=== PATIENT | female | born 1995 | race African-American/Black ===

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

== ENCOUNTER 2017-02-06 20:25 | Emergency (ER) | payer MEDICAID, OTHER ==
[~2017-02-06] VITALS: Ht 167.6 cm; Wt 99.0 kg
[~2017-02-06 20:25] MED LIST changes: +PENI500T PO
[2017-02-06 20:27] VITALS: BP 146/77; PULSE 120; RESP 16; TEMP 98.5; O2SAT 96
--- NOTE | 2017-02-06 21:11 | PD ---
HPI Chief Complaint: Injury Time Seen by Provider: 21:04 Travel History International Travel<30 days: No Contact w/Intl Traveler<30days: No Traveled to known affect area: No History of Present Illness HPI Patient is a 21-year-old female presenting to emergency Department for evaluation of right foot and right thumb pain. Patient states she was moving a bench at work when the bench slipped, breaking off her acrylic nail on her thumb and landing on her right third through fifth toes. The accident occurred at approximately 5 PM this evening. She reports pain is a 5 out of 10 and states it's painful to walk. Patient describes her pain as throbbing. She has not taken anything to alleviate the pain thus far. PFSH Past Medical History Cardiovascular Problems: Yes (NEUROCARDIOGENIC SYCOPE) Diminished Hearing: No Immunizations Current: Yes Tetanus Vaccination: Unknown Influenza Vaccination: No ?: Not Past Surgical History Surgical History: No Previous Surgery Social History Alcohol Use: Yes (socially) Tobacco Use: No Substance Use: No Allergies-Medications (Allergen,Severity, Reaction): Coded Allergies: No Known Allergies (Unverified , 02/06/17) Reported Meds & Prescriptions Reported Meds & Active Scripts Active Ibuprofen 800 Mg Tab 800 Mg PO Q6HR PRN Review of Systems Except as stated in HPI: all other systems reviewed are Neg Musculoskeletal: Positive: Myalgias, Pain Skin: Positive Change in Pigmentation, Positive Change in nails Physical Exam Narrative GENERAL: Well-nourished, well-developed patient. SKIN: Focused skin assessment warm/dry. HEAD: Normocephalic. EYES: No scleral icterus. No injection or drainage. NECK: Supple, trachea midline. No JVD or lymphadenopathy. CARDIOVASCULAR: Regular rate and rhythm without murmurs, gallops, or rubs. RESPIRATORY: Breath sounds equal bilaterally. No accessory muscle use. GASTROINTESTINAL: Abdomen soft, non-tender, nondistended. MUSCULOSKELETAL: No cyanosis, mild edema to the right third through fifth toes. Positive pedal pulses, brisk less than 3 second capillary refill. No obvious deformities noted. Right thumb with a small abrasion to the distal aspect of the nailbed where the acrylic nail broke off. The nail is not avulsed. BACK: Nontender without obvious deformity. No CVA tenderness. Data Data Last Documented VS Vital Signs Date Time Temp Pulse Resp B/P Pulse Ox O2 Delivery O2 Flow Rate FiO2 02/06/17 20:27 98.5 120 16 146/77 96 Room Air Orders Foot, Limited (2vws) (02/06/17 ) Ice/Cold Pack (02/06/17 21:05) Wound Care (02/06/17 21:05) Ibuprofen (Motrin) (02/06/17 21:15) Shoe Post Op (02/06/17 ) MDM Medical Decision Making Medical Screen Exam Complete: Yes Emergency Medical Condition: Yes Interpretation(s) Vital Signs Date Time Temp Pulse Resp B/P Pulse Ox O2 Delivery O2 Flow Rate FiO2 02/06/17 20:27 98.5 120 16 146/77 96 Room Air Differential Diagnosis Fracture versus contusion versus avulsion versus other Narrative Course Patient is a 21-year-old female presenting after sustaining an injury to her right foot and right first finger at work at 5 PM this evening. Imaging ordered and pending. Ice, ibuprofen, wound care ordered. Patient reports a history of neurocardiogenic syncope. Her heart rate is elevated at 120 on arrival. Patient is denying any pain in her chest or shortness of breath. Will reassess vital signs prior to discharge. Wound care was performed Imaging shows no acute fracture, only soft tissue swelling. Patient will be given a postop shoe for comfort. She is encouraged to rest, ice, elevate extremity. She will be given a note for work. She is encouraged to follow-up with her primary doctor. She was advised strongly to avoid having her acrylic nails manicured until the wound on her thumb is completely healed to avoid a secondary infection. Encouraged to keep a Band-Aid and topical antibiotic ointment on her finger. She is advised to return to emergency department for any new or worsening symptoms. Patient verbalized understanding of instructions. Patient is stable for discharge. HR reassessed at 97 prior to discharge Diagnosis Primary Impression: Contusion, toes Qualified Code: S90.121A - Contusion of lesser toe of right foot without damage to nail, initial encounter Additional Impression: Injury of nail bed of finger Qualified Code: S69.91XA - Injury of nail bed of finger, right, initial encounter Referrals: Primary Care Physician Patient Instructions: Acute Wound Care (ED), Foot Contusion (ED), General Instructions Departure Forms: Tests/Procedures, Work Release Enter return to work date: Feb 07, 2017 Special Instructions: Postop shoe for comfort, allow periods of elevation throughout the day. Additional Instructions: Rest, ice, elevate extremity Keep nail bed clean and dry, apply topical antibiotic ointment and Band-Aid. Strongly advise against having nails manicured, specifically to the injured nail bed until the wound is completely healed to avoid a secondary infection Postop shoe for comfort Follow-up with your primary Return to emergency department for any new or worsening symptoms Med/Other Pt SpecificInfo: Prescription(s) given Scripts Ibuprofen 800 Mg Sbo561 Mg PO Q6HR PRN (PAIN) #40 TAB Ref 0 Prov:Lolita Mcclellan 02/06/17 Disposition: 01 DISCHARGE HOME Condition: Stable Lolita Mcclellan Feb 06, 2017 21:11
[2017-02-06] MEDS ORDERED: IBUPROFEN 800 MG TAB PO ONE (21:15)
--- NOTE | 2017-02-06 21:28 | RADRPT ---
EXAM DATE/TIME: 02/06/2017 21:25 [facility] COMPARISON: No previous studies available for comparison. INDICATIONS : Kids table landed on toes at work. MEDICAL HISTORY : None. SURGICAL HISTORY : None. ENCOUNTER: Initial ACUITY: 1 day PAIN SCORE: 0/10 LOCATION: Right 3rd-5th toes FINDINGS: There is distal soft tissue swelling. Bones of the right foot are intact and normally aligned. CONCLUSION: Soft tissue swelling without fracture. Bernardo Gomez MD on February 06, 2017 at 21:25 Board Certified Radiologist. This report was verified electronically.
[2017-02-06] MEDS ORDERED: IBUP800T23 PO (21:41)
== END 2017-02-06 22:51 | disposition home or self-care (01) ==
LOC: NEPK 20:25
DX: S90.121A Contusion of right lesser toe(s) without damage to nail, initial encounter (principal); S69.91XA Unspecified injury of right wrist, hand and finger(s), initial encounter; R00.0 Tachycardia, unspecified; Z86.69 Personal history of other diseases of the nervous system and sense organs; Z86.79 Personal history of other diseases of the circulatory system; X58.XXXA Exposure to other specified factors, initial encounter; Y99.0 Civilian activity done for income or pay
CPT/HCPCS: 73620; 99283; L3260

== ENCOUNTER 2017-03-18 12:22 | Emergency (ER) | payer MEDICAID ==
[~2017-03-18] VITALS: Ht 160 cm; Wt 167.0 kg
[~2017-03-18 12:22] MED LIST changes: +IBUP800T23 PO; -PENI500T PO; -PROV10TA PO
[2017-03-18 12:24] VITALS: BP 163/78; PULSE 103; RESP 18; TEMP 98.2; O2SAT 99
--- NOTE | 2017-03-18 12:43 | PD ---
HPI Chief Complaint: Back/ Neck Pain or Injury Time Seen by Provider: 12:43 Travel History International Travel<30 days: No Contact w/Intl Traveler<30days: No Traveled to known affect area: No History of Present Illness HPI 22-year-old female presents to the emergency department for evaluation of left upper back pain that started 2 days ago without injury. Patient has not taken anything [id number] for her pain. She states the pain is exacerbated by movement. She has had no fevers or chills. No cough or congestion. No chest pain. Patient denies any abdominal pain. No nausea, vomiting, diarrhea. Patient has had no recent surgeries or travel. No hemoptysis. No leg edema. She is not on control pills. She does report history of syncope. She denies any recent syncope. Patient denies any chance of . No loss of bowel or bladder control. No loss of sensation. No history of IV drug use. PFSH Past Medical History Cardiovascular Problems: Yes (NEUROCARDIOGENIC SYNCOPE) Diminished Hearing: No Immunizations Current: No Tetanus Vaccination: Unknown Influenza Vaccination: No ?: Not LMP: 03/18/17 Past Surgical History Surgical History: No Previous Surgery Social History Alcohol Use: Yes (socially) Tobacco Use: No Substance Use: No Allergies-Medications (Allergen,Severity, Reaction): Coded Allergies: No Known Allergies (Unverified , 03/18/17) Reported Meds & Prescriptions Reported Meds & Active Scripts Active Review of Systems Except as stated in HPI: all other systems reviewed are Neg Physical Exam Narrative GENERAL: Well-nourished, well-developed obese female patient, afebrile. SKIN: Focused skin assessment warm/dry. HEAD: Normocephalic. Atraumatic. EYES: No scleral icterus. No injection or drainage. NECK: Supple, trachea midline. No JVD or lymphadenopathy. CARDIOVASCULAR: Regular rate and rhythm without murmurs, gallops, or rubs. Bilateral radial and pedal pulses are 2+. RESPIRATORY: Breath sounds equal bilaterally. No accessory muscle use. Lungs sounds are clear to auscultation. GASTROINTESTINAL: Abdomen soft, non-tender, nondistended. MUSCULOSKELETAL: No cyanosis, or edema. BACK: No obvious deformity. No CVA tenderness. Patient has left thoracic paraspinal musculature tenderness to palpation. When patient rotates from side- to-side, this pain is exacerbated. No midline spinal tenderness to palpation. Data Data Last Documented VS Vital Signs Date Time Temp Pulse Resp B/P Pulse Ox O2 Delivery O2 Flow Rate FiO2 03/18/17 12:24 98.2 103 18 163/78 99 MDM Medical Decision Making Medical Screen Exam Complete: Yes Emergency Medical Condition: Yes Medical Record Reviewed: Yes Differential Diagnosis Muscle strain versus spasm versus rib contusion Narrative Course 22-year-old female presents to the emergency department for evaluation of left upper back pain that started 2 days Without injury. This pain is exacerbated by movement. Heart rate is 93 on my physical exam. Patient is PERC negative. No evidence of any underlying lung disease. Physical exam is consistent with muscle strain. Patient is given Toradol 60 mg IM, Norflex 60 mg IM for pain. Patient is to use heating pad on low for 20 mins 4-5 times daily. She is to follow up with her primary care physician. She is to return for any acute, worsening of symptoms. Patient verbalizes agreement and understanding. The patient was discharged in stable condition with instructions, including return instructions and follow up instructions. Diagnosis Primary Impression: Upper back pain on left side Referrals: Primary Care Physician call for appointment Patient Instructions: Back Pain (ED), General Instructions Additional Instructions: Heating pad on low for 20 minutes 4-5 times daily. Take ibuprofen as directed as needed with food for pain. Take Robaxin as directed as needed. Follow-up with your primary care physician. Return to the emergency department for any acute worsening of symptoms. Med/Other Pt SpecificInfo: Prescription(s) given Scripts Methocarbamol (Robaxin)750 Mg Ele071 Mg PO TID PRN (MUSCLE SPASM) #21 TAB Ref 0 Prov:Dena Guzmán 03/18/17 Ibuprofen 800 Mg Tjc699 Mg PO Q8HR PRN (PAIN) #21 TAB Ref 0 Prov:Dena Guzmán 03/18/17 Disposition: 01 DISCHARGE HOME Condition: Stable Dena Guzmán Mar 18, 2017 12:43
[2017-03-18 12:45] VITALS: PULSE 92; RESP 18; O2SAT 98
[2017-03-18] MEDS ORDERED: ORPHENADRINE INJ 60 MG/2 ML AMP IM ONE (12:45)
[2017-03-18] MEDS ORDERED: KETOROLAC TROMETHAMINE 60 MG/2 ML (IM) VIAL IM ONE (12:45)
[2017-03-18] MEDS ORDERED: IBUP800T23 PO (12:51)
[2017-03-18] MEDS ORDERED: ROBA750T PO (12:51)
== END 2017-03-18 13:37 | disposition home or self-care (01) ==
LOC: NEPD 12:22
DX: M54.9 Dorsalgia, unspecified (principal)
CPT/HCPCS: 96372; 99284; J1885; J2360

== ENCOUNTER 2017-03-24 16:12 | Emergency (ER) | payer MEDICAID ==
[~2017-03-24] VITALS: Ht 160 cm; Wt 172.0 kg
[~2017-03-24 16:12] MED LIST changes: +ROBA750T PO
[2017-03-24 16:14] VITALS: BP 158/88; PULSE 118; RESP 18; TEMP 99; O2SAT 98
--- NOTE | 2017-03-24 16:24 | PD ---
Physical Exam Date Seen by Provider: Mar 24, 2017 Time Seen by Provider: 16:23 Narrative 22 yo female here for cold like symptoms. She has had this on and off for a few weeks. Worsen the past few days. Sore throat. Cough. Congestion. Some vomit with cough. No sick contacts. Taking OTC meds. Vitals are stable in triage. Awaiting bed placement. Data Data Last Documented VS Vital Signs Date Time Temp Pulse Resp B/P Pulse Ox O2 Delivery O2 Flow Rate FiO2 03/24/17 16:14 99.0 118 18 158/88 98 MDM Medical Record Reviewed: Yes Supervised Visit with JESUS: No Grayson Damon Mar 24, 2017 16:24
--- NOTE | 2017-03-24 16:57 | PD ---
HPI Chief Complaint: Cold / Flu Symptoms Time Seen by Provider: 16:25 Travel History International Travel<30 days: No Contact w/Intl Traveler<30days: No Traveled to known affect area: No History of Present Illness HPI 22-year-old female presents emergency department for evaluation of sore throat, nasal congestion, cough and 2 episodes of vomiting over the last 2 days. She denies fever, chills, abdominal pain, diarrhea. She has not attempted any over- the-counter medicines for her symptoms. No aggravating or alleviating factors. Symptoms severity is mild PFSH Past Medical History Cardiovascular Problems: Yes (neurocardiogenic syncope) Diminished Hearing: No Immunizations Current: No ?: Not LMP: 03/19/17 Past Surgical History Surgical History: No Previous Surgery Social History Alcohol Use: No Tobacco Use: No Substance Use: No Allergies-Medications (Allergen,Severity, Reaction): Coded Allergies: No Known Allergies (Unverified , 03/24/17) Reported Meds & Prescriptions Reported Meds & Active Scripts Active No Active Prescriptions or Reported Medications Review of Systems Except as stated in HPI: all other systems reviewed are Neg General / Constitutional: No: Fever Eyes: No: Visual changes HENT: Positive: Sore Throat, Rhinitis, No: Headaches Cardiovascular: No: Chest Pain or Discomfort Respiratory: Positive: Cough Gastrointestinal: Positive: Vomiting, No: Abdominal Pain Genitourinary: No: Dysuria Physical Exam Narrative GENERAL: Alert, well-appearing female in no acute distress. Patient resting comfortably on stretcher. SKIN: Focused skin assessment warm/dry. Small rash upper lip consistent with impetigo HEAD: Atraumatic. Normocephalic. EYES: Pupils equal and round. No scleral icterus. No injection or drainage. ENT: No nasal bleeding or discharge. Mucous membranes pink and moist. Patient appears well-hydrated. NECK: Trachea midline. No JVD. CARDIOVASCULAR: Regular rate and rhythm. No murmur appreciated. RESPIRATORY: No accessory muscle use. Clear to auscultation. Breath sounds equal bilaterally. GASTROINTESTINAL: Abdomen soft, non-tender, nondistended. Hepatic and splenic margins not palpable. MUSCULOSKELETAL: No obvious deformities. No clubbing. No cyanosis. No edema. NEUROLOGICAL: Awake and alert. No obvious cranial nerve deficits. Motor grossly within normal limits. Normal speech. PSYCHIATRIC: Appropriate mood and affect; insight and judgment normal. Data Data Last Documented VS Vital Signs Date Time Temp Pulse Resp B/P Pulse Ox O2 Delivery O2 Flow Rate FiO2 03/24/17 16:14 99.0 118 18 158/88 98 MDM Medical Decision Making Medical Screen Exam Complete: Yes Emergency Medical Condition: Yes Differential Diagnosis Viral illness, URI, strep pharyngitis, pneumonia Narrative Course 22 year old female with a 2 days hx of sore throat, nasal congestion, cough. She reports she had 2 episodes of vomiting. Denies ABD pain. Her physical exam is reassuring. Patient has mild pharyngeal erythema without exudate. Nasal congestion. Small rash upper lip with impetigo. Her abdomen is soft and nontender. She appears well-hydrated. She will be treated for viral illness and instructed to stay well hydrated. She verbalizes understanding and is to plan Diagnosis Primary Impression: Viral illness Additional Impression: Impetigo Referrals: Primary Care Physician Additional Instructions: Stay well hydrated retraining pending fluids. Take [id number] Motrin and/or Tylenol as needed for fever and pain. Use the Bactroban ointment as prescribed. Return to the emergency department if he developed new or worsening symptoms such as abdominal pain. Scripts Mupirocin Topical (Bactroban Topical)22 Gm Cream1 Applic TOPICAL BID #1 TUBE Ref 0 Prov:Elli Pelletier 03/24/17 Disposition: 01 DISCHARGE HOME Condition: Stable Elli Pelletier Mar 24, 2017 16:56
[2017-03-24] MEDS ORDERED: MUPI2%T TOPICAL (17:05)
== END 2017-03-24 17:12 | disposition home or self-care (01) ==
LOC: NEPD 16:12
DX: B34.9 Viral infection, unspecified (principal); L01.00 Impetigo, unspecified
CPT/HCPCS: 99283

== ENCOUNTER 2017-05-23 08:44 | Emergency (ER) | payer SELFPAY ==
[~2017-05-23] VITALS: Ht 160 cm; Wt 173.0 kg
[~2017-05-23 08:44] MED LIST changes: -IBUP800T23 PO; +MUPI2%T TOPICAL; -ROBA750T PO
[2017-05-23 08:45] VITALS: BP 170/101; PULSE 108; RESP 20; TEMP 98.5; O2SAT 98
--- NOTE | 2017-05-23 09:05 | PD ---
HPI Chief Complaint: ENT Complaint Time Seen by Provider: 09:01 Travel History International Travel<30 days: No Contact w/Intl Traveler<30days: No Traveled to known affect area: No History of Present Illness HPI 22-year-old female presents to the emergency Department with complaint of sore throat 2 days. Says her golf coach told her to ask for referral to ENT for nodules in her throat. Denies lump in throat, difficulty swallowing, unusual drooling. Reports painful swallowing. Denies fever, ear pain, nasal congestion. Reports occasional cough. Has not taken any medications or trying to treatment to be her symptoms. Symptoms are mild in severity. No one else with similar symptoms. No known allergies. No other medical complaints. No other modifying factors or associated signs and symptoms. PFSH Past Medical History Cardiovascular Problems: Yes (neurocardiogenic syncope) Diminished Hearing: No Immunizations Current: No ?: Not Social History Alcohol Use: No Tobacco Use: No Substance Use: No Allergies-Medications (Allergen,Severity, Reaction): Coded Allergies: No Known Allergies (Unverified , 05/23/17) Reported Meds & Prescriptions Reported Meds & Active Scripts Active Review of Systems Except as stated in HPI: all other systems reviewed are Neg Physical Exam Narrative GENERAL: Well-nourished, well-developed black female patient, in no acute distress; afebrile, nontoxic-appearing SKIN: Warm and dry. No rash. HEAD: Atraumatic. Normocephalic. EYES: Pupils equal and round at 3 mm with brisk reaction. No scleral icterus. No injection or drainage. PERRLA. ENT: Mucosa pink and dry. Pharynx with 1+ tonsils; without erythema, exudate, and edema. Uvular edema. No uvular, palatal, or tonsillar deviation. Airway patent. Voice is hoarse. EARS: Bilateral pinnae and external canals appear within normal limits. Bilateral tympanic membranes without erythema, dullness or perforation.. NECK: Trachea midline. No Anterior cervical lymphadenopathy or tenderness. CARDIOVASCULAR: Regular rate. RESPIRATORY: No accessory muscle use. GASTROINTESTINAL: Obese. MUSCULOSKELETAL: No obvious deformities. No clubbing. No cyanosis. No edema. NEUROLOGICAL: Awake and alert. Oriented 3. No obvious cranial nerve deficits. Motor grossly within normal limits. Normal speech. Moves all extremities. PSYCHIATRIC: Appropriate mood and affect; insight and judgment normal. Data Data Last Documented VS Vital Signs Date Time Temp Pulse Resp B/P (MAP) Pulse Ox O2 Delivery O2 Flow Rate FiO2 05/23/17 08:45 98.5 108 20 170/101 (124) 98 Room Air Orders Orders Group A Rapid Strep Screen (05/23/17 09:05) Ibuprofen (Motrin) (05/23/17 09:15) Strep Culture (Group A) (05/23/17 09:10) MDM Medical Decision Making Medical Screen Exam Complete: Yes Emergency Medical Condition: Yes Medical Record Reviewed: Yes Differential Diagnosis Pharyngitis, tonsillitis, laryngitis, less likely peritonsillar abscess Narrative Course 22 -year-old female with sore throat. Patient is afebrile and nontoxic- appearing. Denies fever, vomiting. Denies unusual drooling, lump in throat, difficulty swallowing. Ibuprofen and rapid strep ordered. 1022: Rapid strep negative. Instructed patient to follow up with primary care provider for referral to ENT as requested. Instructed patient to follow up with primary care provider. Patient verbalizes understanding and agreement with treatment plan. Patient is medically cleared and stable for discharge. Discussed reasons to return to the emergency department. Patient agrees with treatment plan. The patients vital signs are stable and the patient is stable for outpatient follow-up and treatment. Patient discharged home, stable and in no acute distress. Diagnosis Primary Impression: Acute pharyngitis Qualified Codes: J02.9 - Acute pharyngitis, unspecified Referrals: Primary Care Physician Patient Instructions: General Instructions, Pharyngitis (ED) Departure Forms: School Release, Return to School Date: May 24, 2017 Tests/Procedures Additional Instructions: Throw away and change your toothbrush 24 hours after starting antibiotics Get plenty of sleep/rest Rest your voice Drink plenty of fluids to prevent dehydration Use warm saltwater gargles to soothe throat pain Use an air humidifier/turn off ceiling fans Use throat lozenges as needed for sore throat Use ibuprofen or acetaminophen as needed to relieve pain and fever Follow-up with your primary care provider within 2-4 days Return immediately to the emergency department with worsening of symptoms Med/Other Pt SpecificInfo: No Meds Exist/No RX given Disposition: 01 DISCHARGE HOME Condition: Stable Eden Harrington May 23, 2017 09:05
[2017-05-23] MEDS ORDERED: IBUPROFEN 800 MG TAB PO ONE (09:15)
[2017-05-23 10:35] VITALS: BP 162/87
== END 2017-05-23 10:48 | disposition home or self-care (01) ==
LOC: NEPK 08:44
DX: J02.9 Acute pharyngitis, unspecified (principal)
CPT/HCPCS: 87081; 87880; 99283

== ENCOUNTER 2017-07-02 08:00 | Emergency (ER) | payer MEDICAID ==
[2017-07-02 08:02] VITALS: BP 135/96; PULSE 93; RESP 14; TEMP 98.3; O2SAT 99
[2017-07-02 08:14] VITALS: BP 138/76; PULSE 97; RESP 18; O2SAT 98
--- NOTE | 2017-07-02 09:03 | PD ---
HPI Chief Complaint: GI Complaint Time Seen by Provider: 08:35 Travel History International Travel<30 days: No Contact w/Intl Traveler<30days: No Traveled to known affect area: No History of Present Illness HPI 22-year-old female came to the emergency room with history of difficulty swallowing food or liquid followed by intense burning sensation in the middle of her chest up to the soon after she eats. Patient says this has been going on for past 5 days. Symptoms are progressively worsening. Yesterday she was at [facility] as per the patient she wasn't examined at all and prescription was given for Zithromax and Medrol Dosepak. She was told to get a GI specialist. Patient does not have a primary care. She did not fill the medications and came here for a second opinion. Vital signs are within acceptable limits. No history of syncopal episode. Patient says this morning she vomited a little where there was some blood tinge in the vomitus. No history of diarrhea constipation. No history of fever or chills. She has never had these kind of symptoms in the past. Patient says that she has been having crampy menstruation and has been taking a lot of ibuprofen over-the- counter. She has been taking 5 pills at a time until past 1 week when she was told by someone that it was not good for her kidneys. Patient currently is not on any regular medications. [facility] Past Medical History Narrative Medical List of her past medical, surgical, social and family history is reviewed from the nursing note. Cardiovascular Problems: Yes (neurocardiogenic syncope) Diminished Hearing: No Immunizations Current: No ?: Not Past Surgical History Surgical History: No Previous Surgery Social History Alcohol Use: No Tobacco Use: No Substance Use: No Allergies-Medications (Allergen,Severity, Reaction): Coded Allergies: No Known Allergies (Unverified Adverse Reaction, Unknown, 07/02/17) Comments No known drug allergies. Reported Meds & Prescriptions Reported Meds & Active Scripts Active Glucocom Blood Glucose Mo W/Device (Device) 1 Kit Kit Kit .ROUTE DIRECTED Glucophage (Metformin HCl) 500 Mg Tab 500 Mg PO BIDPC Omeprazole 20 Mg Tab 20 Mg PO DAILY Narrative Medication List of her home medications reviewed from the nursing note. Review of Systems Except as stated in HPI: all other systems reviewed are Neg Gastrointestinal: Positive: Nausea, Vomiting, Dysphagia Physical Exam Narrative GENERAL: Awake, alert, mild distress, morbidly obese SKIN: Focused skin assessment warm/dry. HEAD: Atraumatic. Normocephalic. EYES: Pupils equal and round. No scleral icterus. No injection or drainage. ENT: No nasal bleeding or discharge. Mucous membranes pink and moist. Slight pharyngeal erythema with no exudates NECK: Trachea midline. No JVD. CARDIOVASCULAR: Regular rate and rhythm. No murmur appreciated. RESPIRATORY: No accessory muscle use. Clear to auscultation. Breath sounds equal bilaterally. GASTROINTESTINAL: Abdomen soft, non-tender, nondistended. Hepatic and splenic margins not palpable. MUSCULOSKELETAL: No obvious deformities. No clubbing. No cyanosis. No edema. NEUROLOGICAL: Awake and alert. No obvious cranial nerve deficits. Motor grossly within normal limits. Normal speech. PSYCHIATRIC: Appropriate mood and affect; insight and judgment normal. Data Data Last Documented VS Vital Signs Date Time Temp Pulse Resp B/P (MAP) Pulse Ox O2 Delivery O2 Flow Rate FiO2 07/02/17 08:14 97 18 138/76 (96) 98 Room Air 07/02/17 08:02 98.3 Orders Orders Complete Blood Count With Diff (07/02/17 09:09) Comprehensive Metabolic Panel (07/02/17 09:09) Prothrombin Time / Inr (Pt) (07/02/17 09:09) Pantoprazole Inj (Protonix Inj) (07/02/17 09:15) Lipase (07/02/17 09:09) Group A Rapid Strep Screen (07/02/17 09:09) Strep Culture (Group A) (07/02/17 09:30) Metformin (Glucophage) (07/02/17 11:00) Ed Discharge Order (07/02/17 11:15) Labs Laboratory Tests Test 07/02/17 09:55 White Blood Count 7.3 TH/MM3 Red Blood Count 4.57 MIL/MM3 Hemoglobin 12.2 GM/DL Hematocrit 37.8 % Mean Corpuscular Volume 82.7 FL Mean Corpuscular Hemoglobin 26.6 PG Mean Corpuscular Hemoglobin Concent 32.2 % Red Cell Distribution Width 15.1 % Platelet Count 345 TH/MM3 Mean Platelet Volume 7.9 FL Neutrophils (%) (Auto) 65.8 % Lymphocytes (%) (Auto) 25.4 % Monocytes (%) (Auto) 6.7 % Eosinophils (%) (Auto) 1.5 % Basophils (%) (Auto) 0.6 % Neutrophils # (Auto) 4.8 TH/MM3 Lymphocytes # (Auto) 1.9 TH/MM3 Monocytes # (Auto) 0.5 TH/MM3 Eosinophils # (Auto) 0.1 TH/MM3 Basophils # (Auto) 0.0 TH/MM3 CBC Comment DIFF FINAL Differential Comment Prothrombin Time 10.8 SEC Prothromb Time International Ratio 1.0 RATIO Blood Urea Nitrogen 8 MG/DL Creatinine 0.64 MG/DL Random Glucose 313 MG/DL Total Protein 7.6 GM/DL Albumin 3.1 GM/DL Calcium Level 8.8 MG/DL Alkaline Phosphatase 108 U/L Aspartate Amino Transf (AST/SGOT) 29 U/L Alanine Aminotransferase (ALT/SGPT) 39 U/L Total Bilirubin 0.3 MG/DL Sodium Level 138 MEQ/L Potassium Level 4.2 MEQ/L Chloride Level 103 MEQ/L Carbon Dioxide Level 27.3 MEQ/L Anion Gap 8 MEQ/L Estimat Glomerular Filtration Rate 143 ML/MIN Lipase 99 U/L MDM Medical Decision Making Medical Screen Exam Complete: Yes Emergency Medical Condition: Yes Medical Record Reviewed: Yes Differential Diagnosis Esophagitis, gastritis, NSAID induced gastritis, electrolyte abnormality Narrative Course 11:22 AM blood test results are back. Patient's blood glucose level is high which is new for her. I gave her dose of metformin. She probably has type 2 diabetes given her obesity. I will give her a prescription of metformin to go home with. I had given her IV Protonix initially. She'll go home with omeprazole prescription as well. I gave patient extensive education on NSAID- induced esophagitis/gastritis, diet modification for gastritis as well as diabetes and education for diabetes and diet control and weight loss. At this point she definitely needs a primary care physician as well as a physician to refer her to for GI. Patient understands this. I'll discharge her home. Procedures EKG Prior to Arrival: No Diagnosis Primary Impression: Esophagitis Additional Impressions: Hyperglycemia Morbid obesity Referrals: Primary Care Physician 1 week Additional Instructions: Please follow-up with your primary care within a week. Asked for a referral to a GI specialist for an endoscopy. Take the medication as per the prescription direction. Please do diet modification in order to reduce weight as well as low sugar diet to keep diabetes under control. Return to the ER if the condition worsens or any other new concerns. Med/Other Pt SpecificInfo: Prescription(s) given Scripts Blood Glucose Monitoring W/Device (Glucocom Blood Glucose Mo W/Device) 1 Kit Kit KIT .ROUTE DIRECTED for Blood Sugar Management, #1 Prov: Yoly Alfaro MD 07/02/17 Metformin (Glucophage) 500 Mg Tab 500 MG PO BIDPC for Blood Sugar Management, #60 TAB 0 Refills Prov: Yoly Alfaro MD 07/02/17 Omeprazole (Omeprazole) 20 Mg Tab 20 MG PO DAILY, #30 TAB 0 Refills Prov: Yoly Alfaro MD 07/02/17 Disposition: 01 DISCHARGE HOME Condition: Stable Yoly Alfaro MD Jul 02, 2017 09:03
[2017-07-02] MEDS ORDERED: PANTOPRAZOLE SODIUM 40 MG VIAL IV PUSH ONE (09:15)
[2017-07-02 10:21] LABS: AUTOMATED NEUTROPHIL # 4.8 TH/MM3 (1.8-7.7); BASOPHIL % 0.6 % (0.0-2.0); EOSINOPHIL # 0.1 TH/MM3 (0-0.4); EOSINOPHIL % 1.5 % (0.0-4.0); HEMATOCRIT 37.8 % (35.0-46.0); HEMO FLAGS DIFF FINAL; LYMPH % 25.4 % (9.0-44.0); LYMPHOCYTE # 1.9 TH/MM3 (1.0-4.8); MEAN CELL VOLUME 82.7 FL (80.0-100.0); MEAN CORPUSCULAR HEMOGLOBIN 26.6 PG (27.0-34.0); MEAN CORPUSCULAR HGB CONC 32.2 % (32.0-36.0); MONO % 6.7 % (0.0-8.0); NEUT % 65.8 % (16.0-70.0); PLATELET COUNT 345 TH/MM3 (150-450); RED BLOOD COUNT 4.57 MIL/MM3 (4.00-5.30); RED CELL DISTRIBUTION WIDTH 15.1 % (11.6-17.2); WHITE BLOOD COUNT 7.3 TH/MM3 (4.0-11.0)
[2017-07-02 10:29] LABS: PROTHROMBIN TIME - PATIENT 10.8 SEC (9.8-11.6)
[2017-07-02 10:41] LABS: ALT (GPT) 39 U/L (9-42); ANION GAP 8 MEQ/L (5-15); AST (GOT) 29 U/L (16-38); BICARBONATE 27.3 MEQ/L (21.0-32.0); BLOOD UREA NITROGEN 8 MG/DL (7-18); CHLORIDE 103 MEQ/L (98-107); GLOMERULAR FILTRATION RATE 143 ML/MIN (>89); POTASSIUM 4.2 MEQ/L (3.5-5.1); SODIUM (NA) 138 MEQ/L (136-145)
[2017-07-02 10:43] LABS: ALKALINE PHOSPHATASE 108 U/L (45-117); TOTAL BILIRUBIN ADULT 0.3 MG/DL (0.2-1.0)
[2017-07-02] MEDS ORDERED: metFORMIN HCL 500 MG TAB PO ONE (11:00)
[2017-07-02] MEDS ORDERED: METF500 PO (11:15)
[2017-07-02] MEDS ORDERED: GLUCKIT15 (11:15)
[2017-07-02] MEDS ORDERED: OMEP20TA93 PO (11:15)
== END 2017-07-02 11:40 | disposition home or self-care (01) ==
LOC: NEPC 08:00
DX: K20.9 Esophagitis, unspecified (principal); R73.9 Hyperglycemia, unspecified; E66.01 Morbid (severe) obesity due to excess calories
CPT/HCPCS: 80053; 83690; 85025; 85610; 87081; 87880; 96374; 99284; C9113

== ENCOUNTER 2017-11-03 23:36 | Emergency (ER) | payer MEDICAID ==
[~2017-11-03] VITALS: Ht 160 cm; Wt 162.0 kg
[~2017-11-03 23:36] MED LIST changes: +GLUCKIT15; +METF500 PO; -MUPI2%T TOPICAL; +OMEP20TA93 PO
[2017-11-03 23:43] VITALS: BP 131/73; PULSE 103; RESP 18; TEMP 98.3; O2SAT 98
--- NOTE | 2017-11-04 00:54 | PD ---
HPI Chief Complaint: Diabetic Time Seen by Provider: 00:50 Travel History International Travel<30 days: No Contact w/Intl Traveler<30days: No Traveled to known affect area: No History of Present Illness HPI 22-year-old female presents to the emergency department by private transportation for complaint of elevated blood sugar. Patient recently diagnosed with diabetes in the past 2 months. Patient has been noncompliant with her medications. Patient denies fever chills nausea vomiting chest pain shortness of breath abdominal pain dysuria urgency hematuria flank pain. Patient has had persistent vaginal bleeding. Patient has been seen for ultrasound has been referred to a methods specialist but has not followed up yet. Patient is also noted diarrhea. Patient has not been on antibiotic. Patient rates pain 0/10 intensity. Patient presents to the emergency department because tonight she felt weak and shaky checked her blood sugar and it was greater than 500. Patient has not been taking her medication and has not been monitoring her blood sugars. PFSH Past Medical History Narrative Medical Neurocardiogenic syncope, morbid obesity, diabetes; occasional alcohol use; nursing notes reviewed Cardiovascular Problems: Yes (neurocardiogenic syncope) Diabetes: Yes Patient Takes Glucophage: No Diminished Hearing: No Immunizations Current: No Tetanus Vaccination: > 5 Years Influenza Vaccination: No ?: Unknown LMP: NOW Past Surgical History Surgical History: No Previous Surgery Social History Alcohol Use: Yes (Rarely) Tobacco Use: No Substance Use: No Allergies-Medications (Allergen,Severity, Reaction): Coded Allergies: No Known Allergies (Unverified Adverse Reaction, Unknown, 07/02/17) Reported Meds & Prescriptions Reported Meds & Active Scripts Active Glucocom Blood Glucose Mo W/Device (Device) 1 Kit Kit Kit .ROUTE DIRECTED Glucophage (Metformin HCl) 500 Mg Tab 500 Mg PO BIDPC Omeprazole 20 Mg Tab 20 Mg PO DAILY Review of Systems Except as stated in HPI: all other systems reviewed are Neg General / Constitutional: No: Fever, Chills HENT: No: Congestion Cardiovascular: No: Chest Pain or Discomfort Respiratory: No: Shortness of Breath Gastrointestinal: No: Nausea, Vomiting, Abdominal Pain Genitourinary: No: Frequency, Dysuria Musculoskeletal: No: Myalgias, Arthralgias Skin: No Rash Neurologic: Positive: Weakness, No: Dizziness, Syncope, Focal Abnormalities, Coordination Problem Psychiatric: No: Anxiety Endocrine: No: Heat Intolerance, Cold Intolerance, Polyuria, Polydipsia Hematologic/Lymphatic: No: Easy Bruising Physical Exam Narrative GENERAL: Well-developed well-nourished morbidly obese female no acute distress or respiratory distress SKIN: Warm and dry. HEAD: Normocephalic. EYES: No scleral icterus. No injection or drainage. NECK: Supple, trachea midline. No JVD or lymphadenopathy. CARDIOVASCULAR: Regular rate and rhythm without murmurs, gallops, or rubs. RESPIRATORY: Breath sounds equal bilaterally. No accessory muscle use. GASTROINTESTINAL: Abdomen soft, non-tender, nondistended. MUSCULOSKELETAL: No cyanosis, or edema. BACK: Nontender without obvious deformity. No CVA tenderness. Data Data Last Documented VS Vital Signs Date Time Temp Pulse Resp B/P (MAP) Pulse Ox O2 Delivery O2 Flow Rate FiO2 11/04/17 06:41 98.2 98 16 123/58 (79) 100 11/04/17 05:48 Room Air Orders Orders Complete Blood Count With Diff (11/04/17 00:55) Comprehensive Metabolic Panel (11/04/17 00:55) Beta Hydroxybutyrate (Acetone) (11/04/17 00:55) Urinalysis - C+S If Indicated (11/04/17 00:55) Blood Culture (11/04/17 00:55) Chest, Single Ap (11/04/17 00:55) Ecg Monitoring (11/04/17 00:55) Iv Access Insert/Monitor (11/04/17 00:55) Oximetry (11/04/17 00:55) NPO (11/04/17 00:55) Sodium Chloride 0.9% Flush (Ns Flush) (11/04/17 01:00) Sodium Chlor 0.9% 1000 Ml Inj (Ns 1000 M (11/04/17 01:00) Insulin Human Regular Inj (Novolin R Inj (11/04/17 01:00) Ed Urine Pregnancytest Poc (11/04/17 00:55) Insulin Human Regular Inj (Novolin R Inj (11/04/17 04:00) Sodium Chlor 0.9% 1000 Ml Inj (Ns 1000 M (11/04/17 04:00) Blood Glucose (11/04/17 03:48) Ed Discharge Order (11/04/17 06:00) Labs Laboratory Tests Test 11/04/17 01:13 11/04/17 01:16 White Blood Count 8.9 TH/MM3 Red Blood Count 4.73 MIL/MM3 Hemoglobin 12.1 GM/DL Hematocrit 38.5 % Mean Corpuscular Volume 81.4 FL Mean Corpuscular Hemoglobin 25.6 PG Mean Corpuscular Hemoglobin Concent 31.5 % Red Cell Distribution Width 16.1 % Platelet Count 434 TH/MM3 Mean Platelet Volume 8.8 FL Neutrophils (%) (Auto) 67.0 % Lymphocytes (%) (Auto) 25.8 % Monocytes (%) (Auto) 4.3 % Eosinophils (%) (Auto) 2.3 % Basophils (%) (Auto) 0.6 % Neutrophils # (Auto) 5.9 TH/MM3 Lymphocytes # (Auto) 2.3 TH/MM3 Monocytes # (Auto) 0.4 TH/MM3 Eosinophils # (Auto) 0.2 TH/MM3 Basophils # (Auto) 0.1 TH/MM3 CBC Comment DIFF FINAL Differential Comment Blood Urea Nitrogen 10 MG/DL Creatinine 0.85 MG/DL Random Glucose 491 MG/DL Total Protein 8.5 GM/DL Albumin 3.5 GM/DL Calcium Level 9.1 MG/DL Alkaline Phosphatase 118 U/L Aspartate Amino Transf (AST/SGOT) 28 U/L Alanine Aminotransferase (ALT/SGPT) 38 U/L Total Bilirubin LESS THAN 0.1 MG/DL Sodium Level 135 MEQ/L Potassium Level 4.1 MEQ/L Chloride Level 100 MEQ/L Carbon Dioxide Level 24.8 MEQ/L Anion Gap 10 MEQ/L Estimat Glomerular Filtration Rate 103 ML/MIN B-Hydroxybutyrate 0.11 MMOL/L Urine Color YELLOW Urine Turbidity CLEAR Urine pH 6.0 Urine Specific [place] LESS/EQUAL 1.005 Urine Protein NEG mg/dL Urine Glucose (UA) 1000 OR GREATER mg/dL Urine Ketones NEG mg/dL Urine Occult Blood NEG Urine Nitrite NEG Urine Bilirubin NEG Urine Urobilinogen 0.2 MG/DL Urine Leukocyte Esterase NEG Urine Squamous Epithelial Cells 0-5 /hpf Microscopic Urinalysis Comment CULT NOT INDICATED MDM Medical Decision Making Medical Screen Exam Complete: Yes Emergency Medical Condition: Yes Medical Record Reviewed: Yes Interpretation(s) [id number] hCG: Negative Urinalysis glucose no ketones Beta hydroxybutyric acid 0.11, not elevated Last Impressions Chest X-Ray 11/04/17 0055 Signed Impressions: Service Date/Time: Saturday, November 04, 2017 01:29 - CONCLUSION: No evidence of acute cardiopulmonary disease. Bernardo Gomez MD CBC & BMP Diagram 11/04/17 01:13 Total Protein 8.5 H, Albumin 3.5, Calcium Level 9.1, Alkaline Phosphatase 118 H , Aspartate Amino Transf (AST/SGOT) 28, Alanine Aminotransferase (ALT/SGPT) 38, Total Bilirubin LESS THAN 0.1 L Vital Signs Date Time Temp Pulse Resp B/P (MAP) Pulse Ox O2 Delivery O2 Flow Rate FiO2 11/04/17 06:41 98.2 98 16 123/58 (79) 100 11/04/17 05:48 115 18 122/62 (82) 98 Room Air 11/04/17 04:09 98.2 120 18 122/62 (82) 100 Room Air 11/04/17 01:30 115 18 125/75 (92) 100 Room Air 11/04/17 01:18 98 11/04/17 00:12 Room Air 11/03/17 23:43 98.3 103 18 131/73 (92) 98 Differential Diagnosis Generalized weakness, uncontrolled diabetes, DKA, noncompliance, UTI, , viral syndrome, gastroenteritis, electrolyte disturbance, arrhythmia Narrative Course IV access obtained specimens collected and sent for resulting patient administered IV fluids along with regular insulin Patient continues to have elevation of blood sugar after trial of low-dose IV insulin as no prior exposure to IV insulin additional IV insulin administered Lab values are found to be grossly within normal limits except for hyperglycemia and glucosuria no evidence for metabolic disturbance electrolyte disturbance sepsis or DKA. Blood sugar responding well to insulin administration patient is encouraged to be compliant with her oral hypoglycemic agent and to follow-up with her managing primary care provider as well as follow-up with methods specialist she is encouraged to follow diabetic diet closely and to lose weight. Patient with detailed discussion on ramifications of noncompliance of her medications with her diagnosis of diabetes and potential ramifications of this disease process versus acceptable and good outcome with compliance and good control of her blood sugars. Patient appears to acknowledge understanding and is aware of the need for taking her medications as prescribed. Patient is encouraged to follow- up with her primary care provider. Patient is encouraged to return the emergency department for any concerns or change in condition Diagnosis Primary Impression: Hyperglycemia Additional Impression: Non compliance w medication regimen Referrals: [facility] 2 days Patient Instructions: General Instructions Additional Instructions: Take your medications as prescribed Monitor your blood sugars daily Return to the emergency department for concerns or change in condition Follow-up with your primary care provider and [facility] Med/Other Pt SpecificInfo: No Change to Meds Disposition: 01 DISCHARGE HOME Condition: Bridgett Greene MD Nov 04, 2017 00:54
[2017-11-04] MEDS ORDERED: SODIUM CHLORIDE 0.9% FLUSH 10 ML FLUSH IVF PRN (01:00)
[2017-11-04] MEDS ORDERED: SODIUM CHLOR 0.9% 1000 ML INJ 1,000 ML IV ONE ×2 (01:00→04:00)
[2017-11-04] MEDS ORDERED: INSULIN HUMAN REGULAR 1,000 UNITS/10 ML VIAL IV PUSH ONE ×2 (01:00→04:00)
[2017-11-04 01:18] VITALS: O2SAT 98
[2017-11-04 01:30] VITALS: BP 125/75; PULSE 115; RESP 18; O2SAT 100
[2017-11-04 01:32] LABS: BILIRUBIN, URINE NEG (NEG); BLOOD, URINE NEG (NEG); GLUCOSE,URINE 1000 OR GREATER mg/dL (NEG); KETONE, URINE NEG (NEG); NITRITE,URINE NEG (NEG); URINE COLOR YELLOW (YELLW/STRAW); URINE LEUKOCYTE ESTERASE NEG (NEG)
--- NOTE | 2017-11-04 01:41 | RADRPT ---
EXAM DATE/TIME: 11/04/2017 01:29 [place] COMPARISON: No previous studies available for comparison. INDICATIONS : Syncope. MEDICAL HISTORY : None. SURGICAL HISTORY : None. ENCOUNTER: Initial ACUITY: 1 day PAIN SCORE: 0/10 LOCATION: Bilateral chest FINDINGS: A single view of the chest demonstrates the lungs to be symmetrically aerated without evidence of mas s, infiltrate or effusion. The cardiomediastinal contours are unremarkable. Osseous structures are intact. CONCLUSION: No evidence of acute cardiopulmonary disease. Bernardo Gomez MD on November 04, 2017 at 1:39 Board Certified Radiologist. This report was verified electronically.
[2017-11-04 01:46] LABS: SQUAMOUS EPITHELIAL CELL URINE 0-5 /hpf (0-5)
[2017-11-04 01:54] LABS: AUTOMATED NEUTROPHIL # 5.9 TH/MM3 (1.8-7.7); BASOPHIL # 0.1 TH/MM3 (0-0.2); BASOPHIL % 0.6 % (0.0-2.0); EOSINOPHIL # 0.2 TH/MM3 (0-0.4); EOSINOPHIL % 2.3 % (0.0-4.0); HEMATOCRIT 38.5 % (35.0-46.0); HEMOGLOBIN 12.1 GM/DL (11.6-15.3); LYMPH % 25.8 % (9.0-44.0); LYMPHOCYTE # 2.3 TH/MM3 (1.0-4.8); MEAN CELL VOLUME 81.4 FL (80.0-100.0); MEAN CORPUSCULAR HEMOGLOBIN 25.6 PG (27.0-34.0); MEAN CORPUSCULAR HGB CONC 31.5 % (32.0-36.0); MEAN PLATELET VOLUME 8.8 FL (7.0-11.0); MONO % 4.3 % (0.0-8.0); MONOCYTE # 0.4 TH/MM3 (0-0.9); PLATELET COUNT 434 TH/MM3 (150-450); RED BLOOD COUNT 4.73 MIL/MM3 (4.00-5.30); RED CELL DISTRIBUTION WIDTH 16.1 % (11.6-17.2); WHITE BLOOD COUNT 8.9 TH/MM3 (4.0-11.0)
[2017-11-04 03:02] LABS: CHLORIDE 100 MEQ/L (98-107); SODIUM (NA) 135 MEQ/L (136-145)
[2017-11-04 03:05] LABS: CALCIUM 9.1 MG/DL (8.5-10.1)
[2017-11-04 03:06] LABS: ALBUMIN 3.5 GM/DL (3.4-5.0); BICARBONATE 24.8 MEQ/L (21.0-32.0)
[2017-11-04 03:13] LABS: ALKALINE PHOSPHATASE 118 U/L (45-117); ALT (GPT) 38 U/L (9-42); AST (GOT) 28 U/L (16-38); BLOOD UREA NITROGEN 10 MG/DL (7-18); CREATININE 0.85 MG/DL (0.50-1.00); GLOMERULAR FILTRATION RATE 103 ML/MIN (>89); TOTAL BILIRUBIN ADULT LESS THAN 0.1 MG/DL (0.2-1.0); TOTAL PROTEIN 8.5 GM/DL (6.4-8.2)
[2017-11-04 03:15] LABS: GLUCOSE,RANDOM 491 MG/DL (74-106)
[2017-11-04 04:09] VITALS: BP 122/62; PULSE 120; RESP 18; TEMP 98.2; O2SAT 100
[2017-11-04 05:48] VITALS: BP 122/62; PULSE 115; RESP 18; O2SAT 98
[2017-11-04 06:41] VITALS: BP 123/58; TEMP 98.2
== END 2017-11-04 06:43 | disposition home or self-care (01) ==
LOC: PHED 23:36
DX: E11.65 Type 2 diabetes mellitus with hyperglycemia (principal); R53.1 Weakness; N93.9 Abnormal uterine and vaginal bleeding, unspecified; R19.7 Diarrhea, unspecified; B95.4 Other streptococcus as the cause of diseases classified elsewhere; E66.01 Morbid (severe) obesity due to excess calories; Z91.14 Patient's other noncompliance with medication regimen; Z79.84 Long term (current) use of oral hypoglycemic drugs
CPT/HCPCS: 71045; 80053; 81001; 82010; 84703; 85025; 87040; 87186; 87205; 96361; 96374; 96376; 99284; J1815; J7030

== ENCOUNTER 2017-11-25 00:08 | Emergency (ER) | payer MEDICAID ==
[~2017-11-25] VITALS: Ht 160 cm; Wt 162.0 kg
[2017-11-25 00:17] VITALS: BP 145/82; PULSE 100; RESP 18; TEMP 98; O2SAT 99
[2017-11-25] MEDS ORDERED: METF1000 PO (00:58)
[2017-11-25] MEDS ORDERED: OMEP20TA93 PO (00:58)
[2017-11-25 01:25] LABS: BILIRUBIN, URINE NEG (NEG); BLOOD, URINE MOD (NEG); GLUCOSE,URINE 1000 OR GREATER mg/dL (NEG); KETONE, URINE NEG (NEG); NITRITE,URINE NEG (NEG); PH, URINE 5.5 (5.0-8.5); URINE COLOR YELLOW (YELLW/STRAW); URINE LEUKOCYTE ESTERASE NEG (NEG)
[2017-11-25 01:30] LABS: BACTERIA, URINE RARE /hpf; SQUAMOUS EPITHELIAL CELL URINE 0-5 /hpf (0-5)
[2017-11-25] MEDS ORDERED: DIFL150T PO (02:32)
--- NOTE | 2017-11-25 02:33 | PD ---
HPI Chief Complaint: Head Of Sales Problem/Complaint Time Seen by Provider: 01:09 Travel History International Travel<30 days: No Contact w/Intl Traveler<30days: No Traveled to known affect area: No History of Present Illness HPI 22-year-old female presents to the emergency department because of swelling in the labial area. Patient reports she is under the care of a primary care provider and BLOW DOWN HELPER. Patient has had pelvic ultrasound to evaluate her for dysfunctional uterine bleeding. Patient states symptoms have been present since July. Patient states that she has been using tampons daily twice daily for management of ongoing vaginal bleeding. Patient has not been started on any hormone replacement to control vaginal bleeding. Patient has recently had ultrasound and has to be evaluated by the BLOW DOWN HELPER before any further intervention is going to be provided according to the patient. Patient is noted some irritation to the labia and is concerned that it may be due to tampon use. Due to the irritation she decided to use sanitary napkins today. Patient does not report any dizziness lightheadedness dyspnea shortness of breath near syncope syncope abdominal pain flank pain dysuria frequency urgency or increased vaginal bleeding. Patient is diabetic and states that she has had issues with being compliant with her medication. Patient denies other concerns or complaints. Patient had no fever or chills. Patient is not sexually active. Patient denies . PFSH Past Medical History Narrative Medical Morbid obesity neurocardiogenic syncope diabetes dysfunctional uterine bleeding ; no surgery; occasional alcohol use; nursing notes reviewed Cardiovascular Problems: Yes (neurocardiogenic syncope) Diabetes: Yes Patient Takes Glucophage: Yes (11/12/17 ) Diminished Hearing: No Hiatal Hernia: Yes Reproductive: Yes (PCOS) Immunizations Current: No Tetanus Vaccination: Never Vaccinated Influenza Vaccination: No ?: Not LMP: 11/25/17 Past Surgical History Surgical History: No Previous Surgery Social History Alcohol Use: Yes (Rarely) Tobacco Use: No Substance Use: No Allergies-Medications (Allergen,Severity, Reaction): Coded Allergies: No Known Allergies (Unverified Adverse Reaction, Unknown, 11/25/17) Reported Meds & Prescriptions Reported Meds & Active Scripts Active Diflucan (Fluconazole) 150 Mg Tab 150 Mg PO ONCE Glucocom Blood Glucose Mo W/Device (Device) 1 Kit Kit Kit .ROUTE DIRECTED Reported Omeprazole 20 Mg Tab 20 Mg PO DAILY Metformin (Metformin HCl) 1,000 Mg Tab 1,000 Mg PO BIDPC Review of Systems Except as stated in HPI: all other systems reviewed are Neg Physical Exam Narrative GENERAL: Well-developed obese female no acute distress or respiratory distress SKIN: Warm and dry. HEAD: Normocephalic. EYES: No scleral icterus. No injection or drainage. NECK: Supple, trachea midline. No JVD or lymphadenopathy. CARDIOVASCULAR: Regular rate and rhythm without murmurs, gallops, or rubs. RESPIRATORY: Breath sounds equal bilaterally. No accessory muscle use. GASTROINTESTINAL: Abdomen soft, non-tender, nondistended. Pelvic exam: Labia is erythematous and edematous with scant white discharge no gross blood or clots on speculum exam cervical loss closed; bimanual exam no adnexal mass or tenderness MUSCULOSKELETAL: No cyanosis, or edema. BACK: Nontender without obvious deformity. No CVA tenderness. Data Data Last Documented VS Vital Signs Date Time Temp Pulse Resp B/P (MAP) Pulse Ox O2 Delivery O2 Flow Rate FiO2 11/25/17 03:13 97 16 136/94 (108) 98 11/25/17 00:17 98.0 Orders Orders Urinalysis - C+S If Indicated (11/25/17 01:09) Ed Urine Pregnancytest Poc (11/25/17 01:09) Wet Prep Profile (11/25/17 01:09) Blood Glucose (11/25/17 01:57) Metformin (Glucophage) (11/25/17 02:45) Ed Discharge Order (11/25/17 03:01) Labs Laboratory Tests Test 11/25/17 01:09 Urine Color YELLOW Urine Turbidity CLEAR Urine pH 5.5 Urine Specific [place] 1.010 Urine Protein NEG mg/dL Urine Glucose (UA) 1000 OR GREATER mg/dL Urine Ketones NEG mg/dL Urine Occult Blood MOD Urine Nitrite NEG Urine Bilirubin NEG Urine Urobilinogen 0.2 MG/DL Urine Leukocyte Esterase NEG Urine RBC 10-14 /hpf Urine WBC 3-5 /hpf Urine Squamous Epithelial Cells 0-5 /hpf Urine Bacteria RARE /hpf Urine Yeast with Hyphae OCC Urine Yeast (Budding) FEW Microscopic Urinalysis Comment CULT NOT INDICATED Clue Cells (Wet Prep) NONE SEEN Vaginal Trichomonas (Wet Prep) NONE SEEN Vaginal Yeast (Wet Prep) NONE SEEN MDM Medical Decision Making Medical Screen Exam Complete: Yes Emergency Medical Condition: Yes Medical Record Reviewed: Yes Interpretation(s) accu ck: 356 wet prep: negative poc hcg: negative UA: blood, rare bacteria, few yeast Differential Diagnosis Contact dermatitis yeast vaginosis UTI to sexual uterine bleeding anemia uncontrolled diabetes Narrative Course Specimen collected for urinalysis and for wet prep Urinalysis marked glucosuria; bedside Accu-Chek performed 356 does not want iv iv fluids or insulin --reports has not taken her metformin today and will take her evening dose of metformin here now Patient is informed of need for very close monitoring of her blood sugars compliance with her medication follow-up with her primary care provider and OB/ 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 Patient is encouraged to return the emergency department for any concerns or change in condition. Patient given prescription for Diflucan and encouraged to discontinue use of tampons or at least increased frequency of changing tampons to once every 2-3 hours as opposed to once every 12 hours. Diagnosis Primary Impression: Dysfunctional uterine bleeding Additional Impression: Hyperglycemia Referrals: Primary Care Physician call for appointment Patient Instructions: General Instructions Med/Other Pt SpecificInfo: Prescription(s) given Scripts Fluconazole (Diflucan) 150 Mg Tab 150 MG PO ONCE for Infection, #1 TAB 0 Refills Prov: Bridgett Silverman MD 11/25/17 Disposition: DISCHARGE HOME Condition: Stable Bridgett Silverman MD Nov 25, 2017 02:33
[2017-11-25] MEDS ORDERED: metFORMIN HCL 500 MG TAB PO ONE (02:45)
[2017-11-25 03:13] VITALS: BP 136/94
== END 2017-11-25 03:20 | disposition home or self-care (01) ==
LOC: PHED 00:08
DX: N93.8 Other specified abnormal uterine and vaginal bleeding (principal); E11.65 Type 2 diabetes mellitus with hyperglycemia; R55 Syncope and collapse; Z79.899 Other long term (current) drug therapy
CPT/HCPCS: 81001; 84703; 87210; 99284

== ENCOUNTER 2018-01-14 09:35 | Emergency (ER) | payer MEDICAID ==
[~2018-01-14] VITALS: Ht 160 cm; Wt 158.0 kg
[~2018-01-14 09:35] MED LIST changes: +DIFL150T PO; +METF1000 PO; -METF500 PO
[2018-01-14 09:49] VITALS: BP 129/93; PULSE 76; RESP 20; TEMP 97.9; O2SAT 98
[2018-01-14] MEDS ORDERED: BACT800T5 PO (10:23)
--- NOTE | 2018-01-14 10:27 | PD ---
HPI Chief Complaint: Pain: Acute or Chronic Time Seen by Provider: 10:09 Travel History International Travel<30 days: No Contact w/Intl Traveler<30days: No Traveled to known affect area: No History of Present Illness HPI 22-year-old female presents to the emergency room for evaluation of left great toe pain that started when she woke up this morning. Patient has history of diabetes and her mother told her to go straight to the emergency room "so she will not lose her toe." Pain is constant, worse with ambulation. Localized to the lateral nail fold and radiates underneath the nail. She denies any trauma or injury to the area. Denies any drainage, fever, chills, nausea, or vomiting. Patient is noncompliant with her medications because of the side effects. PFSH Past Medical History Cardiovascular Problems: Yes (neurocardiogenic syncope) Diabetes: Yes Patient Takes Glucophage: Yes Diminished Hearing: No Hiatal Hernia: Yes Reproductive: Yes (PCOS) Immunizations Current: No Tetanus Vaccination: Unknown Influenza Vaccination: No ?: Unknown Past Surgical History Surgical History: No Previous Surgery Social History Alcohol Use: Yes (socially) Tobacco Use: No Substance Use: No Allergies-Medications (Allergen,Severity, Reaction): Coded Allergies: No Known Allergies (Unverified Adverse Reaction, Unknown, 01/14/18) Reported Meds & Prescriptions Reported Meds & Active Scripts Active Bactrim DS (Sulfamethoxazole-Trimethoprim) 800-160 Mg Tab 1 Tab PO BID Glucocom Blood Glucose Mo W/Device (Device) 1 Kit Kit Kit .ROUTE DIRECTED Reported Metformin (Metformin HCl) 1,000 Mg Tab 1,000 Mg PO BIDPC Review of Systems Except as stated in HPI: all other systems reviewed are Neg Physical Exam Narrative GENERAL: Well-nourished, morbidly obese female no acute distress. Afebrile. Ambulatory. SKIN: Focused skin assessment warm/dry. There is a very mild area of erythema to the left great lateral nail fold. Very minimal purulent drainage. No obvious fluctuance or abscess. HEAD: Normocephalic. EYES: No scleral icterus. No injection or drainage. NECK: Supple, trachea midline. No JVD or lymphadenopathy. CARDIOVASCULAR: Regular rate and rhythm without murmurs, gallops, or rubs. RESPIRATORY: Breath sounds equal bilaterally. No accessory muscle use. MUSCULOSKELETAL: No cyanosis, or edema. Less than 2 second capillary refill distally. Data Data Last Documented VS Vital Signs Date Time Temp Pulse Resp B/P (MAP) Pulse Ox O2 Delivery O2 Flow Rate FiO2 01/14/18 09:49 97.9 76 20 129/93 (105) 98 MDM Medical Decision Making Medical Screen Exam Complete: Yes Emergency Medical Condition: Yes Medical Record Reviewed: Yes Differential Diagnosis Abscess, paronychia, cellulitis, fracture, gout Narrative Course 22-year-old female with history of diabetes presents to the emergency room for evaluation of left great toe pain for the past day. No systemic signs of infection. Patient is well-appearing, ambulatory in the emergency room. There is very mild erythema of the left great toe lateral nail fold. Mild drainage was easily expressed. Given patient's uncontrolled diabetes, she will be treated with Bactrim. Told to follow-up with a supervisory aide for possible ingrown toenail procedure or return to the emergency room for worsening symptoms. She understands and agrees to plan. Diagnosis Primary Impression: Paronychia of great toe of left foot Referrals: Primary Care Physician Additional Instructions: Rest and drink plenty of fluids. Take Bactrim as directed, until gone. Apply warm compresses to the affected area 20 minutes at a time, 3-5 times daily. Follow up with a primary care physician. Return to emergency room for worsening symptoms, as discussed. Med/Other Pt SpecificInfo: Prescription(s) given Scripts Sulfamethoxazole-Trimethoprim (Bactrim DS) 800-160 Mg Tab 1 TAB PO BID for Infection, #20 TAB 0 Refills Prov: Yoly Alfaro MD 01/14/18 Disposition: 01 DISCHARGE HOME Condition: Stable Ruth Tobin January 14, 2018 10:27
== END 2018-01-14 10:47 | disposition home or self-care (01) ==
LOC: NEPD 09:35
DX: L03.032 Cellulitis of left toe (principal); E11.9 Type 2 diabetes mellitus without complications; Z79.84 Long term (current) use of oral hypoglycemic drugs
CPT/HCPCS: 99283

== ENCOUNTER 2018-02-05 09:47 | Emergency (ER) | payer MEDICAID ==
[~2018-02-05] VITALS: Ht 160 cm; Wt 157.0 kg
[~2018-02-05 09:47] MED LIST changes: +BACT800T5 PO; -DIFL150T PO; -OMEP20TA93 PO
[2018-02-05 09:54] VITALS: BP 130/80; PULSE 102; RESP 17; TEMP 98.3; O2SAT 95
[2018-02-05 11:05] LABS: AUTOMATED NEUTROPHIL # 6.4 TH/MM3 (1.8-7.7); BASOPHIL % 0.4 % (0.0-2.0); EOSINOPHIL # 0.1 TH/MM3 (0-0.4); EOSINOPHIL % 1.4 % (0.0-4.0); HEMATOCRIT 37.5 % (35.0-46.0); HEMOGLOBIN 11.9 GM/DL (11.6-15.3); LYMPH % 24.1 % (9.0-44.0); LYMPHOCYTE # 2.2 TH/MM3 (1.0-4.8); MEAN CELL VOLUME 79.1 FL (80.0-100.0); MEAN CORPUSCULAR HEMOGLOBIN 25.2 PG (27.0-34.0); MEAN CORPUSCULAR HGB CONC 31.8 % (32.0-36.0); MEAN PLATELET VOLUME 7.7 FL (7.0-11.0); MONO % 5.1 % (0.0-8.0); MONOCYTE # 0.5 TH/MM3 (0-0.9); PLATELET COUNT 428 TH/MM3 (150-450); RED BLOOD COUNT 4.74 MIL/MM3 (4.00-5.30); RED CELL DISTRIBUTION WIDTH 15.7 % (11.6-17.2); WHITE BLOOD COUNT 9.3 TH/MM3 (4.0-11.0)
--- NOTE | 2018-02-05 11:17 | PD ---
HPI . 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 She states that she has been using tampons continuously because of the vaginal bleeding. She now comes in complaining with vaginal irritation. She states that she has had an ultrasound which is reportedly normal. She states that control pills were suggested to her but that she has declined. She states that she has used several control methods in the past and that they adversely affect her body. Therefore, she is not interested in control pills to control the bleeding. She is reporting vaginal discomfort which she rates at 3/10. She has not tried any [id number] yeast preparations for her vaginal complaints. PFSH Past Medical History Cardiovascular Problems: Yes (neurocardiogenic syncope) Diabetes: Yes Diminished Hearing: No Hiatal Hernia: Yes Reproductive: Yes (PCOS) Immunizations Current: No ?: Not Social History Alcohol Use: Yes (socially) Tobacco Use: No Substance Use: No Allergies-Medications (Allergen,Severity, Reaction): Coded Allergies: No Known Allergies (Unverified Adverse Reaction, Unknown, 01/14/18) Reported Meds & Prescriptions Reported Meds & Active Scripts Active Diflucan (Fluconazole) 150 Mg Tab 150 Mg PO ONCE Bactrim DS (Sulfamethoxazole-Trimethoprim) 800-160 Mg Tab 1 Tab PO BID Reported Metformin (Metformin HCl) 1,000 Mg Tab 1,000 Mg PO BIDPC Review of Systems Except as stated in HPI: all other systems reviewed are Neg General / Constitutional: No: Fever, Chills Genitourinary: Positive: Discharge, Vaginal Bleeding, Other (Vaginal discomfort ), No: Urgency, Frequency, Dysuria Neurologic: Positive: Weakness Physical Exam Narrative GENERAL: Markedly obese making pelvic exam very difficult. SKIN: warm/dry. HEAD: Normocephalic. Atraumatic. EYES: Pupils equal and round. Extraocular movements are intact. ENT: Mucous membranes pink and moist. NECK: Supple. Full range of motion without pain.. CARDIOVASCULAR: Regular rate and rhythm. RESPIRATORY: No accessory muscle use. Normal respiratory rate and oxygen saturation. GASTROINTESTINAL: Abdomen soft. Nontender. Bowel sounds present. Nondistended. : Difficult exam. There is some blood in the vaginal vault. The cervical loss is closed. There is a white discharge in addition to the bleeding. I am really unable to comment on cervical motion tenderness because I could not reach the cervix. As far as I can tell, her bimanual exam is nontender. MUSCULOSKELETAL: No obvious deformities. Normal muscle tone. NEUROLOGICAL: Awake and alert. No obvious cranial nerve deficits. Motor grossly within normal limits. Normal speech. PSYCHIATRIC: Appropriate mood and affect; insight and judgment normal. Data Data Last Documented VS Vital Signs Date Time Temp Pulse Resp B/P (MAP) Pulse Ox O2 Delivery O2 Flow Rate FiO2 02/05/18 09:54 98.3 102 17 130/80 (97) 95 Orders Orders Complete Blood Count With Diff (02/05/18 10:09) Comprehensive Metabolic Panel (02/05/18 10:09) Gc And Chlamydia Pcr (02/05/18 11:00) Wet Prep Profile (02/05/18 11:00) Ed Urine Pregnancytest Poc (02/05/18 11:11) Labs Laboratory Tests Test 02/05/18 10:18 02/05/18 11:15 White Blood Count 9.3 TH/MM3 Red Blood Count 4.74 MIL/MM3 Hemoglobin 11.9 GM/DL Hematocrit 37.5 % Mean Corpuscular Volume 79.1 FL Mean Corpuscular Hemoglobin 25.2 PG Mean Corpuscular Hemoglobin Concent 31.8 % Red Cell Distribution Width 15.7 % Platelet Count 428 TH/MM3 Mean Platelet Volume 7.7 FL Neutrophils (%) (Auto) 69.0 % Lymphocytes (%) (Auto) 24.1 % Monocytes (%) (Auto) 5.1 % Eosinophils (%) (Auto) 1.4 % Basophils (%) (Auto) 0.4 % Neutrophils # (Auto) 6.4 TH/MM3 Lymphocytes # (Auto) 2.2 TH/MM3 Monocytes # (Auto) 0.5 TH/MM3 Eosinophils # (Auto) 0.1 TH/MM3 Basophils # (Auto) 0.0 TH/MM3 CBC Comment DIFF FINAL Differential Comment Blood Urea Nitrogen 6 MG/DL Creatinine 0.70 MG/DL Random Glucose 276 MG/DL Total Protein 8.2 GM/DL Albumin 3.4 GM/DL Calcium Level 9.4 MG/DL Alkaline Phosphatase 99 U/L Aspartate Amino Transf (AST/SGOT) 27 U/L Alanine Aminotransferase (ALT/SGPT) 37 U/L Total Bilirubin 0.3 MG/DL Sodium Level 138 MEQ/L Potassium Level 4.2 MEQ/L Chloride Level 102 MEQ/L Carbon Dioxide Level 24.7 MEQ/L Anion Gap 11 MEQ/L Estimat Glomerular Filtration Rate 129 ML/MIN Clue Cells (Wet Prep) NONE SEEN Vaginal Trichomonas (Wet Prep) NONE SEEN Vaginal Yeast (Wet Prep) PRESENT MDM Medical Decision Making Medical Screen Exam Complete: Yes Emergency Medical Condition: Yes Differential Diagnosis Differential diagnosis of vaginal bleeding includes but is not limited to dysfunctional uterine bleeding, normal menstrual cycle, ectopic , spontaneous AB, PID. Narrative Course Patient presents with vaginal bleeding for about 6 months. She states that she is here today because she is concerned about a yeast infection secondary to continuous tampon use for the last 6 months. CBC Diagram 02/05/18 10:18 UCG neg wet prep + yeast Diagnosis Primary Impression: Dysfunctional uterine bleeding Additional Instructions: Follow-up with a lift team technician Scripts Fluconazole (Diflucan) 150 Mg Tab 150 MG PO ONCE for Infection, #1 TAB 0 Refills Prov: Corinna Malagon MD 02/05/18 Disposition: 01 DISCHARGE HOME Condition: Stable Corinna Malagon MD Feb 05, 2018 11:17
[2018-02-05 11:19] LABS: ALBUMIN 3.4 GM/DL (3.4-5.0); ALT (GPT) 37 U/L (9-42); AST (GOT) 27 U/L (16-38); BICARBONATE 24.7 MEQ/L (21.0-32.0); BLOOD UREA NITROGEN 6 MG/DL (7-18); CALCIUM 9.4 MG/DL (8.5-10.1); CHLORIDE 102 MEQ/L (98-107); GLOMERULAR FILTRATION RATE 129 ML/MIN (>89); GLUCOSE,RANDOM 276 MG/DL (74-106); SODIUM (NA) 138 MEQ/L (136-145)
[2018-02-05 11:22] LABS: ALKALINE PHOSPHATASE 99 U/L (45-117); TOTAL BILIRUBIN ADULT 0.3 MG/DL (0.2-1.0); TOTAL PROTEIN 8.2 GM/DL (6.4-8.2)
[2018-02-05] MEDS ORDERED: DIFL150T PO (12:23)
[2018-02-05 12:34] VITALS: BP 128/74
== END 2018-02-05 13:15 | disposition home or self-care (01) ==
LOC: NEPD 09:47
DX: N93.8 Other specified abnormal uterine and vaginal bleeding (principal); E11.9 Type 2 diabetes mellitus without complications; E28.2 Polycystic ovarian syndrome; Z79.84 Long term (current) use of oral hypoglycemic drugs
CPT/HCPCS: 80053; 84703; 85025; 87210; 87491; 87591; 99283